=== PATIENT | female | born 1940 | race Caucasian/White ===

== ENCOUNTER → 2017-06-01 | Outpatient (CLI) | payer MEDICARE, OTHER ==
[~2017-06-01] MED LIST: ALEN70TA5 PO; ASPI-515 PO; BUPR100T11 PO; CHOL500015 PO; FOLI-17 PO; IRON PO; METO50TA82 PO; OMEP-110 PO; OMNIPAQUE 350 MG/ML, 100ML BOTTLE ONE; ROSU40TA PO; SPIR50TA2 PO; TELM40TA PO
== END | disposition home or self-care (01) ==
LOC: CFH 13:34
PROVIDERS: ATTEND Registered Nurse
DX: K82.0 Obstruction of gallbladder (principal); D73.89 Other diseases of spleen; M43.16 Spondylolisthesis, lumbar region; M47.897 Other spondylosis, lumbosacral region; M41.86 Other forms of scoliosis, lumbar region
CPT/HCPCS: 74160; 82565; Q9967

== ENCOUNTER 2020-12-18 14:50 | Outpatient (CLI) | payer MEDICARE, OTHER ==
[~2020-12-18 14:50] MED LIST changes: +ACET325T14 PO; -ALEN70TA5 PO; +ALEN70TA77 PO; -ASPI-515 PO; +ASPI-963 PO; +CEFD300C37 PO; +DOCU-131 PO; -FOLI-17 PO; +FOLI1TAB32 PO; +GABA300C10 PO; +LIDO700A20 TD; -OMNIPAQUE 350 MG/ML, 100ML BOTTLE ONE; -SPIR50TA2 PO; +SPIR50TA4 PO
== END 2020-12-18 23:59 | disposition home or self-care (01) ==
LOC: RAD 14:50
PROVIDERS: ATTEND Internal Medicine
DX: M79.604 Pain in right leg (principal); M79.605 Pain in left leg
CPT/HCPCS: 93970